=== PATIENT | female | born 1960 | race African-American/Black ===

== ENCOUNTER 2016-06-24 03:16 | Emergency (ER) | payer SELFPAY ==
[2016-06-24 03:24] VITALS: BP 153/89; PULSE 108; TEMP 98.2; BMI 24.6
[2016-06-24] MEDS ORDERED: FAMOTIDINE 20 MG/50 ML IVPB 50 ML IVPB ONE (03:32)
--- NOTE | 2016-06-24 03:32 | PDOC ---
History of Present Illness - General Chief Complaint: Pain, Acute Stated Complaint: LUQ ABD PAIN Time Seen by Provider: 06/24/16 03:26 History Source: Patient Exam Limitations: No Limitations - History of Present Illness Initial Comments: 06/24/16 03:26 This is a 58-year-old female with history of gastric reflux disease. But otherwise healthy. Patient said she developed upper abdominal pain approximately 9 PM. Pain radiates to the back. Patient says it is associated with some mild nausea but no vomiting or diarrhea. There is no fevers or chills. There is a history of similar pain in the past diagnosed as gastric reflux and patient was given an antacid to take for it. Patient took one Pepcid without relief and comes in for evaluation. PAST MEDICAL HISTORY: no significant history PAST SURGICAL HISTORY: no significant history FAMILY HISTORY: no pertinant history SOCIAL HISTORY: Pt lives with family and is employed. MEDICATIONS: reviewed ALLERGIES: As per nursing notes Review of Systems General: No fevers or chills, no weakness, no weight loss HEENT: No change in vision. No sore throat,. No ear pain CardioVascular: No chest pain or shortness of breath Respiratory:No cough, or wheezing. Gastrointestinal: + nausea, no vomitting, diarrhea or constipation, No rectal bleeding Genitourinary: No dysuria, hematuria, or frequency Musculoskeletal: No joint or muscle pain or swelling Neurologic: No headache, vertigo, dizziness or loss of consciousness Psychiatric: nor depression Skin: No rashes or easy bruising Endocrine: no increased thirst or abnormal weight change Allergic: no skin or latex allergy All other systems reviewed and normal Exam: General: Well-nourished well-developed individual, no acute distress HEENT: Throat: Normal, tonsils normal, no erythema or exudate Neck: Supple, no meningeal signs, no lymphadenopathy Eyes::Pupils equal reactive and round, extraocular motion intact Chest: Nontender to palpation Cardiac: S1-S2 normal, regular rate and rhythm, no murmurs rubs or gallops Respiratory: Lungs clear to auscultation bilateral Abdomen: Soft, nondistended, normal bowel sounds, + mildly tender to palpation epigastric, no guarding or rebound. Extremities: Warm, dry, no cyanosis, clubbing, or edema Skin: No rashes Neuro: Alert and oriented x3, nonfocal exam, grossly intact, normal gait Psych: Normal mood and affect 06/24/16 05:35 Assessment and plan: This is a 56-year-old female who comes in complaining of burning type epigastric pain. Patient had a workup including EKG and labs. Everything was completely normal patient was given antacids and Maalox and feels slightly better but not completely better. Discussed with patient the importance of following up with her primary care doctor. Told patient to continue to take and that resolved which she has been taking and patient was discharged home. Past History - Past Medical History Allergies/Adverse Reactions: Allergies Allergy/AdvReac Type Severity Reaction Status Date / Time No Known Allergies Allergy Unverified 06/24/16 03:20 Home Medications: Ambulatory Orders Amlodipine Besylate 10 mg PO DAILY 06/24/16 Omeprazole 20 mg PO DAILY 06/24/16 - Psycho/Social/Smoking Cessation Hx Suicidal Ideation: No Smoking History: Never smoked *Physical Exam - Vital Signs Last Vital Signs Temp Pulse Resp BP Pulse Ox 98.2 F 108 H 18 153/89 99 06/24/16 03:22 06/24/16 03:22 06/24/16 03:22 06/24/16 03:22 06/24/16 03:22 ED Treatment Course - LABORATORY CBC & Chemistry Diagram: 06/24/16 03:42 06/24/16 04:25 *DC/Admit/Observation/Transfer Diagnosis at time of Disposition: Gastritis Qualifiers: Gastritis type: unspecified gastritis Chronicity: acute Gastritis bleeding: without bleeding Qualified Code(s): K29.00 - Acute gastritis without bleeding - Discharge Dispostion Disposition: HOME Condition at time of disposition: Stable - Patient Instructions Printed Discharge Instructions: Gastritis (Alternative Therapy), DI for Gastritis Additional Instructions: Continued to take your antacids and follow up with your doctor today. Return to the emergency department immediately with ANY new, persistent or worsening symptoms. Continue any medications as previously prescribed by your physician. You should follow up with your primary doctor as soon as possible regarding today's emergency department visit. . Please make sure your doctor reviews the results of your emergency evaluation. Thank you for coming to the Emergency Department today for your care. It was a pleasure to see you today. Please note that your evaluation is INCOMPLETE until you follow-up with your doctor.
[2016-06-24] MEDS ORDERED: MAG HYDROX/AL HYDROX/SIMETH 30 ML UNIT-DOSE CUP PO ONE (03:33)
[2016-06-24] MEDS ORDERED: MAG HYDROX/AL HYDROX/SIMETH 30 ML UNIT-DOSE CUP ONE (03:43)
[2016-06-24 04:05] LABS: BASOPHIL 0.9 % (0-2.0); EOSINOPHIL 1.1 % (0-4.5); MCH 32.2 pg (25.7-33.7); MCHC 33.8 g/dl (32.0-36.0); MEAN CELL VOLUME 95.1 fl (80-96); MEAN PLT VOLUME 10.6 fl (7.5-11.1); NEUTROPHILS 28.7 % (42.8-82.8); PLATELET COUNT 226 K/MM3 (134-434); RDW 13.7 % (11.6-15.6); WHITE BLOOD COUNT 6.6 K/mm3 (4.0-10.0)
[2016-06-24 05:28] LABS: ALBUMIN 3.6 g/dl (3.4-5.0); ANION GAP 9 (8-16); BILIRUBIN,TOTAL 0.5 mg/dL (0.2-1.0); CALCIUM 8.5 mg/dL (8.5-10.1); CO2 26 mmol/L (21-32); COCKROFT - GAULT 85.1955; CREATININE 0.8 mg/dL (0.55-1.02); GLUCOSE,RANDOM 93 mg/dL (74-106); SGOT/AST 18 U/L (15-37); SGPT/ALT 33 U/L (12-78); TOT PROT 6.9 g/dl (6.4-8.2)
[2016-06-24 05:31] LABS: ALK PHOS 73 U/L (45-117); TROPONIN I < 0.02 ng/ml (0.00-0.05)
--- NOTE | 2016-06-24 18:48 | EKG ---
Test Reason : Blood Pressure : / mmHG Vent. Rate : 101 BPM Atrial Rate : 101 BPM P-R Int : 184 ms QRS Dur : 082 ms QT Int : 332 ms P-R-T Axes : 066 019 031 degrees QTc Int : 430 ms SINUS TACHYCARDIA NONSPECIFIC T WAVE ABNORMALITY NO PREVIOUS ECGS AVAILABLE Confirmed by MD ALEXIS, SHAY ([id number]) on 06/24/2016 6:47:54 PM Referred By: ALPHONSO GONZALEZ Confirmed By:SHAY ESPINOZA MD
== END 2016-06-24 05:43 | disposition home or self-care (01) ==
LOC: FER 03:16
PROC: 3E033GC Introduction of Other Therapeutic Substance into Peripheral Vein, Percutaneous Approach (ICD-10-PCS; principal; 2016-06-24)
DX: K29.00 Acute gastritis without bleeding (principal)
CPT/HCPCS: 36415; 80053; 82550; 83690; 84484; 85025; 93005; 99283-25